=== PATIENT | female | born 1935 | race Caucasian/White ===

== ENCOUNTER 2017-12-22 10:41 | Inpatient (IN) | payer OTHER ==
[~2017-12-22] VITALS: Ht 172.7 cm; Wt 81.0 kg
[2017-12-22] MEDS ORDERED: NALBUPHINE HCL 10 MG/1ml INJECTION IV ONE (11:00)
[2017-12-22] MEDS ORDERED: ASPirin 81 mg TAB PO ONE ×2 (11:00→16:00)
[2017-12-22] MEDS ORDERED: ONDANSETRON HCL 4 MG/2 ML VIAL IV ONE (11:00)
[2017-12-22 11:19] LABS: Basophils # (auto) 0.1 uL; Eosinophils # (auto) 0.1 uL; Hemoglobin 11.8 g/dL (12.2-16.2); Lymphocytes # (auto) 1.5 uL; Mean Corpuscular Hgb Conc. 34.3 g/dL (32.0-36.0); Monocytes # (auto) 0.4 uL
[2017-12-22 11:21] LABS: Basophils % (auto) 1.5 % (0.0-2.0); Hematocrit 34.3 % (36.0-46.0); Lymphocytes % (auto) 20.7 % (10.0-50.0); Mean Corpuscular Hemoglobin 34.3 pg (28.0-32.0); Mean Corpuscular Volume 99.9 fL (80.0-100.0); Monocytes % (auto) 5.6 % (0.0-12.0); Neutrophils # (auto) 5.1 uL; Neutrophils % (auto) 70.2 % (37.0-80.0); Platelet Count (auto) 207 10^3/uL (140-450); Red Blood Cells 3.44 10^6/uL (4.0-5.20); Red Cell Distribution Width 16.5 % (11.8-14.3); White Blood Cell 7.2 10^3/uL (4.4-10.8)
[2017-12-22 11:30] LABS: INR 0.97 (0.9-1.15); Partial Thromboplastin Time 27.5 sec (22.64-33.71); Prothrombin Time 10.6 sec (9.37-12.3)
[2017-12-22 11:40] LABS: Alanine Aminotransferase 32 U/L (13-56); Albumin 3.5 g/dL (3.4-5.0); Alkaline Phosphatase 53 U/L (45-117); Anion Gap 11 (5-15); Aspartate Aminotransferase 27 U/L (15-37); BUN/Creatinine Ratio 13.6; Bilirubin, Total 0.6 mg/dL (0.2-1.0); Blood Urea Nitrogen 20 mg/dL (7-18); Calcium 8.9 mg/dL (8.5-10.1); Carbon Dioxide 19 mmol/L (21-32); Chloride 107 mmol/L (98-107); GFR African American 44 mL/min; GFR Non-African American 36 mL/min; Glucose 159 mg/dL (74-106); Potassium 4.2 mmol/L (3.5-5.1); Sodium 137 mmol/L (136-145); Total Protein 7.3 g/dL (6.4-8.2)
[2017-12-22] MEDS ORDERED: NITROGLYCERIN 0.4 MG SL TAB SL ONE (12:00)
[2017-12-22] MEDS ORDERED: DEXTROSE (50%) 50ML SYRG IV PRN (15:45)
[2017-12-22] MEDS ORDERED: ALENDRONATE SODIUM 10 MG TAB PO SCH (15:45)
[2017-12-22] MEDS ORDERED: LEVOTHYROXINE SODIUM 50 MCG TAB PO ONE (16:00)
[2017-12-22] MEDS ORDERED: ALUM & MAG HYDROX-SIMETH LIQ(MAALOX) 30 ML PO ONE (16:00)
[2017-12-22] MEDS ORDERED: CLOPIDOGREL BISULFATE 75 MG TAB PO ONE (16:00)
[2017-12-22] MEDS ORDERED: ONDANSETRON HCL 4 MG/2 ML VIAL IV PRN (16:00)
[2017-12-22] MEDS ORDERED: ACETAMINOPHEN 325 MG TAB PO PRN (16:00)
[2017-12-22] MEDS ORDERED: LORazepam 0.5 MG TAB PO PRN (16:00)
[2017-12-22] MEDS ORDERED: MORPHINE SULFATE 4 MG/ML SYR/VIAL IV PRN ×2 (16:00)
[2017-12-22] MEDS ORDERED: ZOLPIDEM TARTRATE 5 MG TAB PO PRN (16:00)
[2017-12-22] MEDS ORDERED: NITROGLYCERIN 0.4 MG SL TAB SL PRN ×2 (16:00)
[2017-12-22] MEDS: ACCU-CHEK COMFORT CURVE STRIP VI SCH ×2 (17:00→21:16)
[2017-12-22] MEDS: InsuLIN REG 1unit/0.01ml Soln (100units/ml) SC SCH ×2 (17:00→21:16)
[2017-12-22] MEDS: METOPROLOL TARTRATE 50 MG TAB PO SCH (18:00)
[2017-12-22] MEDS: CALCIUM W/VIT D (600MG/400IU) TAB PO SCH (18:00)
[2017-12-22 18:30] VITALS: BP 115/67
[2017-12-22] MEDS ORDERED: SIMV-8 PO (18:43)
[2017-12-22] MEDS ORDERED: LEVO125T7 PO (18:43)
[2017-12-22] MEDS ORDERED: METO-158 PO (18:43)
[2017-12-22] MEDS ORDERED: METF-370 PO (18:43)
[2017-12-22] MEDS ORDERED: WARF1TAB36 PO (18:43)
[2017-12-22] MEDS ORDERED: ALEN70TA55 PO (18:43)
[2017-12-22 20:00] VITALS: BP_SYST 103; BP_SYST 97; BP_DIAS 55; BP_DIAS 62
[2017-12-22] MEDS: ACETYLCYSTEINE ORAL for CIN 20%(200MG/ML) 4ML PO SCH (21:44)
[2017-12-22] MEDS: ENALAPRIL MALEATE 2.5 MG TAB PO SCH (21:46)
[2017-12-22] MEDS: SODIUM CHLOR 0.9% PF (SALINE LOCK) 10ML VIAL IV SCH (21:53)
[2017-12-22] MEDS ORDERED: ATORVASTATIN 20 MG TAB PO SCH (22:00)
[2017-12-22 22:16] VITALS: BP 97/55
[2017-12-23 05:31] LABS: Basophils # (auto) 0.1 uL; Basophils % (auto) 1.2 % (0.0-2.0); Eosinophils # (auto) 0.2 uL; Hemoglobin 11.2 g/dL (12.2-16.2); Mean Corpuscular Hemoglobin 34.6 pg (28.0-32.0); Monocytes # (auto) 0.4 uL; Monocytes % (auto) 5.8 % (0.0-12.0); Neutrophils # (auto) 5.1 uL
[2017-12-23 05:32] LABS: Eosinophils % (auto) 2.2 % (0.0-7.0); Hematocrit 32.6 % (36.0-46.0); Lymphocytes # (auto) 1.6 uL; Lymphocytes % (auto) 21.5 % (10.0-50.0); Mean Corpuscular Hgb Conc. 34.5 g/dL (32.0-36.0); Mean Corpuscular Volume 100.3 fL (80.0-100.0); Neutrophils % (auto) 69.3 % (37.0-80.0); Nucleated Red Blood Cells % 0.1 %; Platelet Count (auto) 190 10^3/uL (140-450); Red Blood Cells 3.25 10^6/uL (4.0-5.20); White Blood Cell 7.4 10^3/uL (4.4-10.8)
[2017-12-23 05:33] VITALS: BP 134/71
[2017-12-23 05:38] LABS: Albumin 3.4 g/dL (3.4-5.0); BUN/Creatinine Ratio 16.3; Bilirubin, Total 0.6 mg/dL (0.2-1.0); Calcium 9.4 mg/dL (8.5-10.1); Magnesium 2.1 mg/dL (1.6-2.6); Potassium 4.2 mmol/L (3.5-5.1); Total Protein 6.8 g/dL (6.4-8.2)
[2017-12-23] MEDS: SODIUM CHLOR 0.9% PF (SALINE LOCK) 10ML VIAL IV SCH ×2 (06:11→14:21)
[2017-12-23] MEDS: InsuLIN REG 1unit/0.01ml Soln (100units/ml) SC SCH ×2 (06:11→11:53)
[2017-12-23] MEDS: ACCU-CHEK COMFORT CURVE STRIP VI SCH ×2 (06:12→11:53)
[2017-12-23] MEDS ORDERED: LEVOTHYROXINE SODIUM 50 MCG TAB PO SCH (07:00)
[2017-12-23 08:00] VITALS: BP 118/63
[2017-12-23] MEDS: METOPROLOL TARTRATE 50 MG TAB PO SCH ×2 (08:00→12:00)
[2017-12-23 08:30] VITALS: BP 120/60
[2017-12-23] MEDS ORDERED: DOCUSATE SOD 100 MG CAP PO SCH (10:00)
[2017-12-23] MEDS ORDERED: CLOPIDOGREL BISULFATE 75 MG TAB PO SCH (10:00)
[2017-12-23] MEDS ORDERED: ASPirin 81 mg TAB PO SCH (10:00)
[2017-12-23] MEDS: ACETYLCYSTEINE ORAL for CIN 20%(200MG/ML) 4ML PO SCH (10:00)
[2017-12-23] MEDS: CALCIUM W/VIT D (600MG/400IU) TAB PO SCH (10:11)
[2017-12-23] MEDS: ENALAPRIL MALEATE 2.5 MG TAB PO SCH (10:12)
[2017-12-23 11:47] VITALS: BP 124/76
[2017-12-23] MEDS ORDERED: OMEP20CA74 PO (14:40)
[2017-12-23] MEDS ORDERED: SIMV-8 PO (14:40)
[2017-12-23] MEDS ORDERED: ACETYLCYSTEINE ORAL for CIN 20%(200MG/ML) 4ML PO SCH (16:15)
[2017-12-23 16:36] VITALS: BP 122/76
[2017-12-23] MEDS ORDERED: ACETYLCYSTEINE 20%(200MG/ML) SOLN 30ML PO SCH (22:00)
== END 2017-12-23 16:55 | disposition home or self-care (01) | DRG 392 ==
LOC: ER 10:41 → TELE 10:42 → TELE-WESTW 18:16
PROVIDERS: ADMIT Internal Medicine; ATTEND Hospitalist
DX: K29.00 Acute gastritis without bleeding (principal); E11.21 Type 2 diabetes mellitus with diabetic nephropathy; I48.0 Paroxysmal atrial fibrillation; E11.22 Type 2 diabetes mellitus with diabetic chronic kidney disease; I48.92 Unspecified atrial flutter; I50.9 Heart failure, unspecified; N18.3 Chronic kidney disease, stage 3 (moderate); D63.8 Anemia in other chronic diseases classified elsewhere; I70.0 Atherosclerosis of aorta; E78.00 Pure hypercholesterolemia, unspecified; J44.9 Chronic obstructive pulmonary disease, unspecified; T45.8X5A Adverse effect of other primarily systemic and hematological agents, initial encounter; M19.90 Unspecified osteoarthritis, unspecified site; M81.0 Age-related osteoporosis without current pathological fracture; R00.1 Bradycardia, unspecified; Z79.01 Long term (current) use of anticoagulants; Z86.711 Personal history of pulmonary embolism; Y92.89 Other specified places as the place of occurrence of the external cause; Z90.710 Acquired absence of both cervix and uterus; Z91.14 Patient's other noncompliance with medication regimen; Z80.8 Family history of malignant neoplasm of other organs or systems
CPT/HCPCS: 36415; 71045; 80053; 80061; 82962; 83036; 83735; 83880; 84484; 85025; 85610; 85730; 87081; 93005; 93306

== ENCOUNTER 2018-03-02 15:54 | Inpatient (IN) | payer OTHER ==
[~2018-03-02] VITALS: Ht 167.6 cm; Wt 72.9 kg
[~2018-03-02 15:54] MED LIST: ALEN70TA55 PO; LEVO125T7 PO; METF-370 PO; METO-158 PO; OMEP20CA74 PO; SIMV-8 PO; WARF1TAB36 PO
[2018-03-02 16:40] LABS: Basophils # (auto) 0.1 uL; Basophils % (auto) 1.2 % (0.0-2.0); Eosinophils # (auto) 0.1 uL; Eosinophils % (auto) 1.9 % (0.0-7.0); Hemoglobin 12.5 g/dL (12.2-16.2); Lymphocytes # (auto) 1.7 uL; Mean Corpuscular Hemoglobin 32.4 pg (28.0-32.0); Mean Corpuscular Hgb Conc. 33.7 g/dL (32.0-36.0); Mean Corpuscular Volume 96.1 fL (80.0-100.0); Monocytes # (auto) 0.6 uL; Monocytes % (auto) 8.9 % (0.0-12.0); Neutrophils # (auto) 4.1 uL; Nucleated Red Blood Cells % 0.1 %; Platelet Count (auto) 237 10^3/uL (140-450); Red Blood Cells 3.85 10^6/uL (4.0-5.20); Red Cell Distribution Width 12.8 % (11.8-14.3); White Blood Cell 6.6 10^3/uL (4.4-10.8)
[2018-03-02 17:08] LABS: Alanine Aminotransferase 17 U/L (13-56); Albumin 3.5 g/dL (3.4-5.0); Alkaline Phosphatase 65 U/L (45-117); Anion Gap 10 (5-15); Aspartate Aminotransferase 17 U/L (15-37); BUN/Creatinine Ratio 18.8; Bilirubin, Total 0.8 mg/dL (0.2-1.0); Blood Urea Nitrogen 16 mg/dL (7-18); Carbon Dioxide 22 mmol/L (21-32); Chloride 107 mmol/L (98-107); GFR African American 82 mL/min; GFR Non-African American 68 mL/min; Glucose 101 mg/dL (74-106); Potassium 3.7 mmol/L (3.5-5.1); Sodium 139 mmol/L (136-145); Total Protein 7.3 g/dL (6.4-8.2)
[2018-03-02 20:26] LABS: Magnesium 1.7 mg/dL (1.6-2.6)
[2018-03-02 21:56] LABS: INR > 10 (0.9-1.15)
[2018-03-02 21:57] LABS: Partial Thromboplastin Time > 170.00 sec (22.64-33.71)
[2018-03-02] MEDS ORDERED: DOXY-216 PO (23:12)
[2018-03-02] MEDS ORDERED: METO-158 PO (23:12)
[2018-03-02] MEDS ORDERED: ONDANSETRON HCL 4 MG/2 ML VIAL IV ONE (23:45)
[2018-03-02] MEDS ORDERED: MORPHINE SULFATE 4 MG/ML SYR/VIAL IV ONE (23:45)
[2018-03-03] VITALS (14 sets, daily range): BP systolic 103–165; BP diastolic 37–92
[2018-03-03] MEDS ORDERED: MORPHINE SULFATE 4 MG/ML SYR/VIAL IV PRN (03:30)
[2018-03-03] MEDS ORDERED: ACETAMINOPHEN 500 MG TAB PO PRN (03:30)
[2018-03-03] MEDS ORDERED: ONDANSETRON HCL 4 MG/2 ML VIAL IV PRN (03:30)
[2018-03-03] MEDS ORDERED: HYDROcodone-ACET 5/325MG TAB PO PRN (03:30)
[2018-03-03] MEDS: LEVOTHYROXINE SODIUM 50 MCG TAB PO SCH (06:36)
[2018-03-03 07:38] LABS: Basophils # (auto) 0 uL; Basophils % (auto) 0.7 % (0.0-2.0); Eosinophils # (auto) 0.1 uL; Eosinophils % (auto) 1.8 % (0.0-7.0); Hematocrit 28.3 % (36.0-46.0); Hemoglobin 9.7 g/dL (12.2-16.2); Lymphocytes # (auto) 1.4 uL; Lymphocytes % (auto) 23.6 % (10.0-50.0); Mean Corpuscular Hemoglobin 32.5 pg (28.0-32.0); Mean Corpuscular Hgb Conc. 34.2 g/dL (32.0-36.0); Mean Corpuscular Volume 94.9 fL (80.0-100.0); Monocytes # (auto) 0.6 uL; Neutrophils # (auto) 3.7 uL; Neutrophils % (auto) 63.9 % (37.0-80.0); Platelet Count (auto) 175 10^3/uL (140-450); Red Blood Cells 2.98 10^6/uL (4.0-5.20); Red Cell Distribution Width 12.8 % (11.8-14.3); White Blood Cell 5.8 10^3/uL (4.4-10.8)
[2018-03-03 07:51] LABS: INR 2.31 (0.9-1.15); Partial Thromboplastin Time 42.6 sec (22.64-33.71); Prothrombin Time 25.4 sec (9.37-12.3)
[2018-03-03 07:53] LABS: BUN/Creatinine Ratio 23.1; Calcium 8.4 mg/dL (8.5-10.1); Potassium 3.5 mmol/L (3.5-5.1)
[2018-03-03] MEDS: METOPROLOL TARTRATE 50 MG TAB PO SCH ×2 (10:10→22:17)
[2018-03-03 12:11] LABS: Basophils # (auto) 0 uL; Basophils % (auto) 0.6 % (0.0-2.0); Eosinophils # (auto) 0.1 uL; Eosinophils % (auto) 1.9 % (0.0-7.0); Hematocrit 30.5 % (36.0-46.0); Hemoglobin 10.2 g/dL (12.2-16.2); Lymphocytes # (auto) 1.3 uL; Lymphocytes % (auto) 21.6 % (10.0-50.0); Mean Corpuscular Hemoglobin 32.1 pg (28.0-32.0); Mean Corpuscular Hgb Conc. 33.5 g/dL (32.0-36.0); Monocytes # (auto) 0.7 uL; Monocytes % (auto) 11.3 % (0.0-12.0); Neutrophils % (auto) 64.6 % (37.0-80.0); Platelet Count (auto) 164 10^3/uL (140-450); Red Blood Cells 3.18 10^6/uL (4.0-5.20); Red Cell Distribution Width 13.1 % (11.8-14.3); White Blood Cell 6.2 10^3/uL (4.4-10.8)
[2018-03-03] MEDS ORDERED: WARF1TAB PO (13:12)
[2018-03-03] MEDS ORDERED: DONEPEZIL HYDROCHLORIDE 5 MG TAB PO SCH (22:00)
[2018-03-04] VITALS (7 sets, daily range): BP systolic 104–131; BP diastolic 46–65
[2018-03-04] MEDS: LEVOTHYROXINE SODIUM 50 MCG TAB PO SCH (06:23)
[2018-03-04] MEDS ORDERED: NALOXONE HCL 0.4 MG/ML VIAL ONE (08:16)
[2018-03-04] MEDS ORDERED: diphenhdrAMINE HCL 50 MG/1 ML VL ONE (08:16)
[2018-03-04] MEDS ORDERED: MIDAZOLAM HCL 5 MG/ML-1ML VIAL ONE (08:16)
[2018-03-04] MEDS ORDERED: FLUMAZENIL 0.1 MG/ML INJ 10ML MDV IV ONE (08:16)
[2018-03-04] MEDS ORDERED: LIDOCAINE VISCOUS 2% 15ML UD ONE (08:16)
[2018-03-04] MEDS ORDERED: fentaNYL CITRATE 100 MCG/2 ML VL ONE (08:17)
[2018-03-04] MEDS: METOPROLOL TARTRATE 50 MG TAB PO SCH (11:02)
== END 2018-03-04 18:40 | disposition home health service (06) | DRG 696 ==
LOC: ER 15:54 → TELE 15:55 → TELE-CENTR 03-03 04:24
PROVIDERS: ADMIT Nurse Practitioner Family; ATTEND Internal Medicine
PROC: 30233L1 Transfusion of Nonautologous Fresh Plasma into Peripheral Vein, Percutaneous Approach (ICD-10-PCS; principal; 2018-03-03)
PROC: 30233K1 Transfusion of Nonautologous Frozen Plasma into Peripheral Vein, Percutaneous Approach (ICD-10-PCS; 2018-03-03)
PROC: 0DJ08ZZ Inspection of Upper Intestinal Tract, Via Natural or Artificial Opening Endoscopic (ICD-10-PCS; 2018-03-03)
DX: R31.9 Hematuria, unspecified (principal); D68.9 Coagulation defect, unspecified; D68.32 Hemorrhagic disorder due to extrinsic circulating anticoagulants; K92.0 Hematemesis; I48.0 Paroxysmal atrial fibrillation; I50.9 Heart failure, unspecified; I11.0 Hypertensive heart disease with heart failure; E11.9 Type 2 diabetes mellitus without complications; T45.515A Adverse effect of anticoagulants, initial encounter; K21.9 Gastro-esophageal reflux disease without esophagitis; E03.9 Hypothyroidism, unspecified; E78.5 Hyperlipidemia, unspecified; M81.0 Age-related osteoporosis without current pathological fracture; Y92.89 Other specified places as the place of occurrence of the external cause; Z79.01 Long term (current) use of anticoagulants; Z79.84 Long term (current) use of oral hypoglycemic drugs; Z79.899 Other long term (current) drug therapy; Z86.711 Personal history of pulmonary embolism; Z90.710 Acquired absence of both cervix and uterus; Z71.89 Other specified counseling; K25.9 Gastric ulcer, unspecified as acute or chronic, without hemorrhage or perforation; K29.80 Duodenitis without bleeding; K29.70 Gastritis, unspecified, without bleeding
CPT/HCPCS: 36415; 36430; 43235; 71045; 74176; 80048; 80053; 82150; 82962; 83036; 83690; 83735; 83880; 84443; 84484; 85025; 85610; 85730; 86850; 86900; 86901; 93005; 96374; 96375; 99291; J2250; J2405

== ENCOUNTER 2019-06-21 19:49 | Emergency (ER) | payer OTHER ==
[~2019-06-21] VITALS: Ht 167.6 cm; Wt 68.0 kg
[~2019-06-21 19:49] MED LIST changes: -ALEN70TA55 PO; +AMIO200T33 PO; +CARV3.1240 PO; +ESCI20TA51 PO; +FURO40TA4 PO; +GLIP5TAB12 PO; +LEVA1NEB5 NEB; -LEVO125T7 PO; +LEVO50TA7 PO; +LISI2.5T47 PO; +LOVA40TA72 PO; -METF-370 PO; -METO-158 PO; +POTA10TA51 PO; +RANO500T2 PO; -SIMV-8 PO; -WARF1TAB36 PO
[2019-06-21] MEDS ORDERED: CALCIUM CHLOR(10%) 100MG/ML 10ML SYRINGE IV ONE (19:50)
[2019-06-21] MEDS ORDERED: EPINEPHrine HCL 1 MG/10 ML SYRG IV ONE (19:50)
[2019-06-21] MEDS ORDERED: SODIUM BICARBONATE 8.4% INJ 50ML SYRINGE IV ONE (19:50)
[2019-06-21] MEDS ORDERED: SODIUM BICARBONATE 8.4% INJ 50ML SYRINGE ONE (19:53)
== END 2019-06-21 19:59 | disposition expired ==
LOC: ER 19:49
DX: I46.9 Cardiac arrest, cause unspecified (principal); I48.91 Unspecified atrial fibrillation; I50.9 Heart failure, unspecified; E11.9 Type 2 diabetes mellitus without complications; I25.2 Old myocardial infarction; Z79.899 Other long term (current) drug therapy; Z90.710 Acquired absence of both cervix and uterus
CPT/HCPCS: 31500; 92950; 99291; J0171